=== PATIENT | male | born 1945 | race African-American/Black ===

== ENCOUNTER 2020-01-11 11:41 | Inpatient (IN) | payer OTHER ==
[~2020-01-11] VITALS: Ht 165.1 cm; Wt 63.5 kg
[2020-01-11] VITALS (8 sets, daily range): BP systolic 92–146; BP diastolic 37–95
[2020-01-11] MEDS ORDERED: METO-396 PO (11:53)
[2020-01-11] MEDS ORDERED: FURO20TA4 PO (11:53)
[2020-01-11] MEDS ORDERED: SODIUM CHLORIDE 0.9% 1000ML BAG (SEPSIS BOLUS) IV ONE (12:00)
[2020-01-11] MEDS ORDERED: DEXTROSE 50% WATER 50ML SYRINGE IV ONE ×2 (13:02→13:15)
[2020-01-11] MEDS ORDERED: VANCOMYCIN 1 G PREMIX 200 ML IV ONE (13:15)
[2020-01-11] MEDS ORDERED: PIPERACILLIN/TAZ 3.375G PREMIX 50 ML IV ONE (13:15)
[2020-01-11 13:39] LABS: CHLORIDE 108 mEq/L (98-107)
[2020-01-11 13:40] LABS: HEMATOCRIT. 50.4 % (42.0-52.0); HEMOGLOBIN. 15.9 g/dL (14.0-18.0); INR 1.8; MEAN CORPUSCULAR HEMOGLOBIN 29.8 pg (28.0-32.0); MEAN CORPUSCULAR VOLUME 94.4 fL (80.0-94.0); MEAN PLATELET VOLUME 10.1 fl (7.4-10.4); PLATELET 97 x1000/uL (130-400); PROTHROMBIN TIME 19.6 sec (9.6-11.0); RED BLOOD CELL COUNT 5.34 mill/uL (4.7-6.1); RED CELL DISTRIBUTION WIDTH 23.2 % (11.6-14.6)
[2020-01-11 13:48] LABS: CLARITY URINE CLOUDY (CLEAR); COLOR URINE DK YELLOW (YELLOW); KETONES URINE TRACE (NEGATIVE); LEUKOCYTE ESTERASE URINE TRACE (NEGATIVE); NITRITE URINE NEGATIVE (NEGATIVE); OCCULT BLOOD URINE 1+ (NEGATIVE); PH URINE 5.5 (4.5-8.0); PROTEIN URINE 2+ (NEGATIVE); SPECIFIC GRAVITY URINE 1.021 (1.005-1.030)
[2020-01-11] MEDS ORDERED: ACETAMINOPHEN 325MG TABLET PO PRN (14:15)
[2020-01-11] MEDS ORDERED: ONDANSETRON HCL 4MG/2ML INJ IV PRN (14:15)
[2020-01-11 14:25] LABS: PLATELET ESTIMATE DECREASED
[2020-01-11 14:26] LABS: BASOPHILS % 1.2 % (0.0-2.0); EOSINOPHILS % 1.1 % (0.0-5.0); LYMPHOCYTES % 39.8 % (20.0-50.0); MONOCYTES % 9.9 % (2.0-8.0)
[2020-01-11] MEDS: BLOOD SUGAR DIAGNOSTIC STRIP TEST SCH ×3 (17:00→21:26)
[2020-01-11] MEDS ORDERED: PIPERACILLIN/TAZOBACTAM 3.375 G in DEXTROSE 5% WATER 50 ML IV SCH (18:00)
[2020-01-11 18:20] LABS: BG BASE EXCESS -14.2 mmol/L (-2.0-2.0); BG CARBOXYHEMOGLOBIN 0.3 % (0.5-1.5); BG DEOXYHEMOGLOBIN 2.1 % (0.0-5.0); BG FRACTION INSPIRED OXYGEN 28; BG HCO3 ACT 10.7 mmol/L (22.0-26.0); BG METHEMOGLOBIN 0.5 % (0.0-1.5); BG OXYGEN SATURATION 97.9 % (92.0-98.5); BG OXYHEMOGLOBIN 97.1 % (94.0-97.0); BG PCO2 24.4 mmHg (35.0-45.0); BG PH 7.261 (7.350-7.450); BG PO2 120.1 mmHg (75.0-100.0); BG SAMPLE SITE LEFT RADIAL; BG TOTAL HEMOGLOBIN 16.5 g/dL (12.0-18.0); BG VENT MODE NASAL CANNULA
[2020-01-11] MEDS: DEXT 5%/0.9% NACL 1,000 ML IV SCH (21:26)
[2020-01-11] MEDS: PIPERACILLIN/TAZOBACTAM 2.25 G in DEXTROSE 5% WATER 50 ML IV SCH (21:37)
[2020-01-12] VITALS (18 sets, daily range): BP systolic 89–116; BP diastolic 11–68
[2020-01-12] MEDS: PIPERACILLIN/TAZOBACTAM 2.25 G in DEXTROSE 5% WATER 50 ML IV SCH ×4 (03:36→19:59)
[2020-01-12] MEDS: DEXT 5%/0.9% NACL 1,000 ML IV SCH (03:36)
[2020-01-12 06:03] LABS: CHLORIDE 110 mEq/L (98-107)
[2020-01-12 06:14] LABS: T4 FREE 0.98 ng/dL (0.76-1.46)
[2020-01-12 06:23] LABS: VITAMIN B12 SERUM 1405 pg/mL (211-911)
[2020-01-12 06:33] LABS: HEMATOCRIT. 45.6 % (42.0-52.0); HEMOGLOBIN. 14.9 g/dL (14.0-18.0); MEAN CORPUSCULAR HEMOGLOBIN 30.2 pg (28.0-32.0); MEAN CORPUSCULAR VOLUME 92.3 fL (80.0-94.0); MEAN PLATELET VOLUME 10.6 fl (7.4-10.4); PLATELET 111 x1000/uL (130-400); RED BLOOD CELL COUNT 4.94 mill/uL (4.7-6.1); RED CELL DISTRIBUTION WIDTH 22.1 % (11.6-14.6)
[2020-01-12] MEDS: BLOOD SUGAR DIAGNOSTIC STRIP TEST SCH ×4 (07:30→20:46)
[2020-01-12] MEDS ORDERED: SODIUM BICARBONATE 8.4% 1 MEQ/ML 50ML SYR IV STA (09:24)
[2020-01-12 11:46] LABS: PLATELET ESTIMATE DECREASED
[2020-01-12] MEDS: SODIUM BICARBONATE 100 MEQ in SODIUM CHLORIDE 0.45% 1,000 ML IV SCH (12:45)
[2020-01-12] MEDS ORDERED: LACTULOSE 20G/30ML UDC PO NR (13:00)
[2020-01-12] MEDS ORDERED: VANCOMYCIN 750 MG in DEXT 5% WATER 250 ML IV SCH (13:00)
[2020-01-12 13:48] LABS: BG BASE EXCESS -10.7 mmol/L (-2.0-2.0); BG CARBOXYHEMOGLOBIN 0.8 % (0.5-1.5); BG DEOXYHEMOGLOBIN 2.2 % (0.0-5.0); BG FRACTION INSPIRED OXYGEN 21; BG HCO3 ACT 12.4 mmol/L (22.0-26.0); BG METHEMOGLOBIN 0.3 % (0.0-1.5); BG OXYGEN SATURATION 97.8 % (92.0-98.5); BG OXYHEMOGLOBIN 96.7 % (94.0-97.0); BG PCO2 22.8 mmHg (35.0-45.0); BG PH 7.353 (7.350-7.450); BG PO2 96.8 mmHg (75.0-100.0); BG SAMPLE SITE RIGHT RADIAL; BG VENT MODE ROOM AIR
[2020-01-12 16:28] LABS: CREATINE KINASE 87 IU/L (39-308)
[2020-01-12] MEDS: ASPIRIN 81MG EC TABLET PO SCH (17:22)
[2020-01-12] MEDS: ATORVASTATIN CALCIUM 20MG TABLET PO SCH (20:46)
[2020-01-13] VITALS (12 sets, daily range): BP systolic 87–115; BP diastolic 28–79
[2020-01-13] MEDS: SODIUM BICARBONATE 100 MEQ in SODIUM CHLORIDE 0.45% 1,000 ML IV SCH ×3 (00:40→09:10)
[2020-01-13] MEDS: PIPERACILLIN/TAZOBACTAM 2.25 G in DEXTROSE 5% WATER 50 ML IV SCH ×3 (01:10→18:00)
[2020-01-13 06:24] LABS: HEMATOCRIT. 53.4 % (42.0-52.0); HEMOGLOBIN. 16.7 g/dL (14.0-18.0); MEAN CORPUSCULAR HEMOGLOBIN 29.9 pg (28.0-32.0); MEAN CORPUSCULAR VOLUME 95.6 fL (80.0-94.0); MEAN PLATELET VOLUME 9.7 fl (7.4-10.4); PLATELET 111 x1000/uL (130-400); RED BLOOD CELL COUNT 5.59 mill/uL (4.7-6.1); RED CELL DISTRIBUTION WIDTH 23.6 % (11.6-14.6)
[2020-01-13 07:18] LABS: CHLORIDE 109 mEq/L (98-107)
[2020-01-13] MEDS: BLOOD SUGAR DIAGNOSTIC STRIP TEST SCH ×4 (07:30→21:25)
[2020-01-13] MEDS: ASPIRIN 81MG EC TABLET PO SCH (09:17)
[2020-01-13 09:37] LABS: NUCLEATED RED BLOOD CELLS 5 /100 WBC; PLATELET ESTIMATE DECREASED
[2020-01-13] MEDS: ATORVASTATIN CALCIUM 20MG TABLET PO SCH (21:25)
[2020-01-14] VITALS (11 sets, daily range): BP systolic 97–135; BP diastolic 20–93
[2020-01-14 06:39] LABS: HEMATOCRIT. 54.8 % (42.0-52.0); HEMOGLOBIN. 17.9 g/dL (14.0-18.0); MEAN CORPUSCULAR HEMOGLOBIN 30.5 pg (28.0-32.0); MEAN CORPUSCULAR VOLUME 93.5 fL (80.0-94.0); MEAN PLATELET VOLUME 9.6 fl (7.4-10.4); PLATELET 133 x1000/uL (130-400); RED BLOOD CELL COUNT 5.86 mill/uL (4.7-6.1); RED CELL DISTRIBUTION WIDTH 22.9 % (11.6-14.6)
[2020-01-14 06:41] LABS: CHLORIDE 109 mEq/L (98-107)
[2020-01-14 06:48] LABS: PHOSPHORUS 4.5 mg/dL (2.5-4.9)
[2020-01-14 07:11] LABS: HIV SCREEN 4G Non Reactive (Non Reactive)
[2020-01-14] MEDS: BLOOD SUGAR DIAGNOSTIC STRIP TEST SCH ×4 (08:00→21:00)
[2020-01-14] MEDS: ASPIRIN 81MG EC TABLET PO SCH (10:05)
[2020-01-14] MEDS: PIPERACILLIN/TAZOBACTAM 2.25 G in DEXTROSE 5% WATER 50 ML IV SCH ×2 (10:10→18:27)
[2020-01-14] MEDS: SODIUM BICARBONATE 100 MEQ in SODIUM CHLORIDE 0.45% 1,000 ML IV SCH ×2 (10:11→22:29)
[2020-01-14] MEDS ORDERED: VANCOMYCIN 1,000 MG in DEXT 5% WATER 250 ML IV SCH (12:00)
[2020-01-14] MEDS: DEXTROSE 50% WATER 50ML SYRINGE IV PRN ×2 (14:11→22:24)
[2020-01-14 15:06] LABS: ANTI-NUCLEAR ANTIBODIES DIRECT Negative (Negative)
[2020-01-14] MEDS: ATORVASTATIN CALCIUM 20MG TABLET PO SCH (22:19)
[2020-01-14 23:07] LABS: NUCLEATED RED BLOOD CELLS 6 /100 WBC; PLATELET ESTIMATE NORMAL
[2020-01-14] MEDS ORDERED: DEXTROSE 5% WATER 1,000 ML IV SCH (23:30)
[2020-01-15] VITALS (12 sets, daily range): BP systolic 96–138; BP diastolic 40–82
[2020-01-15] MEDS: DEXTROSE 50% WATER 50ML SYRINGE IV PRN (01:11)
[2020-01-15 06:58] LABS: BASOPHILS % 0.5 % (0.0-2.0); EOSINOPHILS % 2.4 % (0.0-5.0); HEMATOCRIT. 47.1 % (42.0-52.0); HEMOGLOBIN. 15.3 g/dL (14.0-18.0); LYMPHOCYTES % 19.1 % (20.0-50.0); MEAN CORPUSCULAR HEMOGLOBIN 30.1 pg (28.0-32.0); MEAN CORPUSCULAR VOLUME 92.8 fL (80.0-94.0); MEAN PLATELET VOLUME 9.5 fl (7.4-10.4); MONOCYTES % 12.1 % (2.0-8.0); NEUTROPHILS % 65.9 % (40.0-76.0); PLATELET 123 x1000/uL (130-400); RED BLOOD CELL COUNT 5.08 mill/uL (4.7-6.1); RED CELL DISTRIBUTION WIDTH 22.1 % (11.6-14.6)
[2020-01-15 07:12] LABS: CHLORIDE 106 mEq/L (98-107)
[2020-01-15] MEDS ORDERED: POTASSIUM CHLORIDE 20MEQ TABLET SR PO SCH (07:45)
[2020-01-15] MEDS: BLOOD SUGAR DIAGNOSTIC STRIP TEST SCH ×4 (07:54→20:19)
[2020-01-15] MEDS: DEXT 5%/0.45% NACL 1000ML 1,000 ML IV SCH ×2 (08:20→20:19)
[2020-01-15] MEDS: CITRIC ACID/SODIUM CITRATE SOLN 30ML UDC PO SCH ×3 (08:21→17:48)
[2020-01-15] MEDS: ASPIRIN 81MG EC TABLET PO SCH (08:21)
[2020-01-15] MEDS: PIPERACILLIN/TAZOBACTAM 2.25 G in DEXTROSE 5% WATER 50 ML IV SCH ×2 (09:46→17:48)
[2020-01-15] MEDS ORDERED: DIATR MEGLU/DIATRIZOATE SOLN 30ML PO NR (18:15)
[2020-01-15] MEDS: ATORVASTATIN CALCIUM 20MG TABLET PO SCH (20:19)
[2020-01-16] VITALS (9 sets, daily range): BP systolic 103–135; BP diastolic 39–90
[2020-01-16] MEDS: PIPERACILLIN/TAZOBACTAM 2.25 G in DEXTROSE 5% WATER 50 ML IV SCH ×3 (02:25→18:00)
[2020-01-16 07:09] LABS: HEMOGLOBIN. 14.3 g/dL (14.0-18.0); MEAN CORPUSCULAR VOLUME 92.2 fL (80.0-94.0); MEAN PLATELET VOLUME 9.5 fl (7.4-10.4); PLATELET 107 x1000/uL (130-400); RED BLOOD CELL COUNT 4.77 mill/uL (4.7-6.1); RED CELL DISTRIBUTION WIDTH 21.8 % (11.6-14.6)
[2020-01-16 07:27] LABS: CHLORIDE 105 mEq/L (98-107)
[2020-01-16 07:34] LABS: PHOSPHORUS 3.7 mg/dL (2.5-4.9)
[2020-01-16] MEDS: BLOOD SUGAR DIAGNOSTIC STRIP TEST SCH ×3 (08:18→17:05)
[2020-01-16] MEDS: CITRIC ACID/SODIUM CITRATE SOLN 30ML UDC PO SCH ×3 (08:45→17:00)
[2020-01-16] MEDS: ASPIRIN 81MG EC TABLET PO SCH (08:45)
[2020-01-16] MEDS: DEXT 5%/0.45% NACL 1000ML 1,000 ML IV SCH (10:25)
[2020-01-16] MEDS ORDERED: POTASSIUM CHLORIDE 20MEQ/PACKET PO NR (12:45)
[2020-01-16 14:17] LABS: NUCLEATED RED BLOOD CELLS 6 /100 WBC
[2020-01-16 14:18] LABS: PLATELET ESTIMATE DECREASED
== END 2020-01-16 21:39 | disposition short-term general hospital (02) | DRG 871 ==
LOC: ER 11:41 → 5EST 14:07 → EDBEDREQ 14:09 → EDBEDREQTM 14:09 → ENRESERV 15:37 → 5EST 01-12 16:15
PROVIDERS: ADMIT Internal Medicine; ATTEND Internal Medicine
PROC: 4B02XTZ Measurement of Cardiac Defibrillator, External Approach (ICD-10-PCS; principal; 2020-01-13)
PROC: 02HV33Z Insertion of Infusion Device into Superior Vena Cava, Percutaneous Approach (ICD-10-PCS; 2020-01-14)
PROC: B548ZZA Ultrasonography of Superior Vena Cava, Guidance (ICD-10-PCS; 2020-01-14)
DX: A41.9 Sepsis, unspecified organism (principal); E43 Unspecified severe protein-calorie malnutrition; G93.41 Metabolic encephalopathy; R57.1 Hypovolemic shock; R65.21 Severe sepsis with septic shock; N17.0 Acute kidney failure with tubular necrosis; I21.4 Non-ST elevation (NSTEMI) myocardial infarction; N39.0 Urinary tract infection, site not specified; D68.9 Coagulation defect, unspecified; E72.20 Disorder of urea cycle metabolism, unspecified; E87.4 Mixed disorder of acid-base balance; I13.2 Hypertensive heart and chronic kidney disease with heart failure and with stage 5 chronic kidney disease, or end stage renal disease; N18.5 Chronic kidney disease, stage 5; D69.6 Thrombocytopenia, unspecified; I07.1 Rheumatic tricuspid insufficiency; G90.8 Other disorders of autonomic nervous system; E16.2 Hypoglycemia, unspecified; E87.6 Hypokalemia; I50.9 Heart failure, unspecified; Z79.01 Long term (current) use of anticoagulants; Z95.810 Presence of automatic (implantable) cardiac defibrillator; Z79.899 Other long term (current) drug therapy; Z68.23 Body mass index [BMI] 23.0-23.9, adult
CPT/HCPCS: 36415; 36600; 71045; 74176; 76770; 76937; 80053; 80202; 81003; 82140; 82270; 82375; 82550; 82607; 82805; 82962; 83036; 83605; 83735; 84100; 84145; 84439; 84443; 84484; 85025; 86038; 86160; 87015; 87045; 87389; 87427; 87449; 89055; 93005; 93306; 93880; 97162; 97530; 99291; C1725; C1769; J2543; J3370; J3490; J7030; J7060; Q9963